=== PATIENT | female | born 1945 | race Caucasian/White ===

== ENCOUNTER 2017-12-19 14:18 | Day surgery (SDC) | payer MEDICARE ==
[~2017-12-19] VITALS: Ht 167.6 cm; Wt 102.1 kg
[~2017-12-19 14:18] MED LIST: DEXL60CA3 PO; ENOX100D2; FURO40TA4 PO; NITR4.1S2 TL; POTA20TA10 PO; SYN0.088T PO; WARF-55 PO
[2017-12-19] MEDS ORDERED: PANT40TA4 PO (14:52)
[2017-12-19] MEDS ORDERED: ENOX80SY7 SUBCUT (14:52)
[2017-12-19] MEDS ORDERED: COU7.5T PO (14:52)
[2017-12-19] MEDS ORDERED: METO50TA17 PO (14:52)
[2017-12-19] MEDS ORDERED: LORazepam 0.5 MG tablet PO PRN (15:10)
[2017-12-19] MEDS ORDERED: diphenhydrAMINE 25mg capsule PO PRN (15:10)
[2017-12-19] MEDS ORDERED: normal saline 1000ml 1,000 ML IV SCH (15:10)
[2017-12-19] MEDS ORDERED: clindamycin 600mg/D5W 50ml 50 ML IV ONE ×2 (15:15→15:20)
[2017-12-19 15:25] LABS: PROTHROMBIN TIME 10.4 SECONDS (9.0-12.0)
== END 2017-12-19 15:30 | disposition home or self-care (01) ==
LOC: SSTAY O 14:18
PROVIDERS: ATTEND Internal Medicine Interventional Cardiology
DX: T82.847A Pain due to cardiac prosthetic devices, implants and grafts, initial encounter (principal); G89.18 Other acute postprocedural pain; E03.9 Hypothyroidism, unspecified; I48.0 Paroxysmal atrial fibrillation; I34.0 Nonrheumatic mitral (valve) insufficiency; I44.1 Atrioventricular block, second degree; I27.20 Pulmonary hypertension, unspecified; I10 Essential (primary) hypertension; F32.9 Major depressive disorder, single episode, unspecified; Z53.8 Procedure and treatment not carried out for other reasons; Z88.0 Allergy status to penicillin; Z88.6 Allergy status to analgesic agent; Z79.01 Long term (current) use of anticoagulants; Z88.1 Allergy status to other antibiotic agents; Z88.8 Allergy status to other drugs, medicaments and biological substances; Z90.710 Acquired absence of both cervix and uterus; Z98.890 Other specified postprocedural states; Z79.899 Other long term (current) drug therapy; Z95.0 Presence of cardiac pacemaker; Z91.048 Other nonmedicinal substance allergy status; Y83.8 Other surgical procedures as the cause of abnormal reaction of the patient, or of later complication, without mention of misadventure at the time of the procedure; Y92.89 Other specified places as the place of occurrence of the external cause
CPT/HCPCS: 36415; 85610; J7030; J3490

== ENCOUNTER 2021-12-20 12:32 | Day surgery (SDC) | payer MEDICARE ==
[2021-12-14 14:40] LABS: BASOPHILS # (AUTO) 0.1 X10'3 (0-0.2); EOSINOPHILS # (AUTO) 0.1 X10'3 (0-0.9); EOSINOPHILS % (AUTO) 2.5 % (0-6); HEMOGLOBIN 13.4 g/dl (12.0-16.0); LYMPHOCYTES # (AUTO) 1.4 X10'3 (1.1-4.8); MEAN PLATELET VOLUME 7.6 FL (7.4-10.4); MONOCYTES # (AUTO) 0.5 X10'3 (0-0.9)
[2021-12-14 14:42] LABS: BASOPHILS % (AUTO) 1.5 % (0-1); HEMATOCRIT 40.5 % (35.0-45.0); MEAN CORPUSCULAR VOLUME 87.6 FL (78-98); MONOCYTES % (AUTO) 8.7 % (2-12); NEUTROPHILS # (AUTO) 3.2 X10'3 (1.8-7.7); NEUTROPHILS % (AUTO) 60.3 % (42-75); PLATELET COUNT 282 X10'3 (140-440); RED BLOOD COUNT 4.62 X10'6 (4.20-5.60); RED CELL DISTRIBUTION WIDTH 14.4 % (11.5-14.5); WHITE BLOOD COUNT 5.2 X10'3 (4.5-11.0)
[2021-12-14 14:50] LABS: ALBUMIN 3.3 G/DL (3.4-5.0); ANION GAP 8 (8-16); BLOOD UREA NITROGEN 12 MG/DL (7-18); BUN/CREATININE RATIO 12.1 (6.6-38.0); CHLORIDE 105 MMOL/L (99-107); CREATININE 0.99 MG/DL (0.40-0.90); GLUCOSE 94 MG/DL (70-104); POTASSIUM 4.2 MMOL/L (3.5-5.1); SODIUM 139 MMOL/L (135-145); TOTAL CARBON DIOXIDE 25.9 MMOL/L (24-32); eGFR 54 ML/MIN
[2021-12-14 14:54] LABS: APTT 38 SECONDS (22-32)
[~2021-12-20] VITALS: Ht 161.3 cm; Wt 84.5 kg
[2021-12-20] VITALS (7 sets, daily range): BP systolic 116–137; BP diastolic 52–102
[~2021-12-20 12:32] MED LIST changes: +COU7.5T PO; -DEXL60CA3 PO; -ENOX100D2; +ENOX80SY7 SUBCUT; -FURO40TA4 PO; +METO50TA17 PO; -NITR4.1S2 TL; +PANT40TA54 PO; -POTA20TA10 PO; -WARF-55 PO
[2021-12-20] MEDS ORDERED: fentaNYL/PF 50MCG/1 ML 2ML syringe IV ONE (12:50)
[2021-12-20] MEDS ORDERED: MIDAZolam 1mg/ml 10ml vial IV ONE (12:50)
[2021-12-20] MEDS ORDERED: NITR0.4T48 SL (12:56)
[2021-12-20] MEDS ORDERED: CARB25TA3 PO (12:56)
[2021-12-20] MEDS ORDERED: WARF-55 PO (12:56)
[2021-12-20] MEDS ORDERED: DRON400T6 PO (12:56)
[2021-12-20] MEDS ORDERED: CARB1TAB36 PO (12:56)
== END 2021-12-20 14:55 | disposition home or self-care (01) ==
LOC: SSTAY O 12:32
PROVIDERS: ATTEND Internal Medicine Interventional Cardiology
DX: I48.0 Paroxysmal atrial fibrillation (principal); Z53.8 Procedure and treatment not carried out for other reasons; G20 Parkinson's disease; I50.9 Heart failure, unspecified; E03.9 Hypothyroidism, unspecified; I34.0 Nonrheumatic mitral (valve) insufficiency; Z95.0 Presence of cardiac pacemaker; Z86.718 Personal history of other venous thrombosis and embolism; Z79.01 Long term (current) use of anticoagulants; Z79.899 Other long term (current) drug therapy; Z85.820 Personal history of malignant melanoma of skin; Z88.5 Allergy status to narcotic agent; Z88.1 Allergy status to other antibiotic agents; Z91.09 Other allergy status, other than to drugs and biological substances
CPT/HCPCS: 36415; 80048; 85025; 85610; 85730; 93005; 94760; 94799

== ENCOUNTER 2022-01-12 14:13 | Emergency (ER) | payer MEDICARE ==
[~2022-01-12] VITALS: Ht 160 cm; Wt 86.4 kg
[~2022-01-12 14:13] MED LIST changes: +CARB1TAB36 PO; +CARB25TA3 PO; -COU7.5T PO; +DRON400T6 PO; -ENOX80SY7 SUBCUT; -METO50TA17 PO; +NITR0.4T48 SL; -PANT40TA54 PO; +WARF-55 PO
[2022-01-12 14:39] LABS: BASOPHILS % (AUTO) 0.6 % (0-1); EOSINOPHILS # (AUTO) 0.1 X10'3 (0-0.9); EOSINOPHILS % (AUTO) 2.3 % (0-6); HEMATOCRIT 42.6 % (35.0-45.0); HEMOGLOBIN 14.2 g/dl (12.0-16.0); LYMPHOCYTES # (AUTO) 1.3 X10'3 (1.1-4.8); LYMPHOCYTES % (AUTO) 26.5 % (21-51); MEAN CORPUSCULAR HEMOGLOBIN 29.5 PG (27.0-31.0); MEAN CORPUSCULAR HGB CONC 33.4 g/dL (33.0-36.5); MEAN CORPUSCULAR VOLUME 88.5 FL (78-98); MEAN PLATELET VOLUME 7.6 FL (7.4-10.4); MONOCYTES # (AUTO) 0.5 X10'3 (0-0.9); MONOCYTES % (AUTO) 9.8 % (2-12); NEUTROPHILS % (AUTO) 60.8 % (42-75); PLATELET COUNT 281 X10'3 (140-440); RED BLOOD COUNT 4.82 X10'6 (4.20-5.60); RED CELL DISTRIBUTION WIDTH 14.5 % (11.5-14.5); WHITE BLOOD COUNT 4.9 X10'3 (4.5-11.0)
[2022-01-12 14:55] LABS: ALANINE AMINOTRANSFERASE 10 U/L (12-78); ALBUMIN 3.4 G/DL (3.4-5.0); ALBUMIN/GLOBULIN RATIO 0.9 (1.1-1.5); ALKALINE PHOSPHATASE 68 IU/L (46-116); ANION GAP 9 (8-16); ASPARTATE AMINO TRANSFERASE 14 U/L (10-37); BILIRUBIN,TOTAL 0.8 MG/DL (0.1-1.0); BLOOD UREA NITROGEN 12 MG/DL (7-18); BUN/CREATININE RATIO 10.2 (6.6-38.0); CALCIUM 8.9 MG/DL (8.5-10.1); CHLORIDE 105 MMOL/L (99-107); CREATININE 1.18 MG/DL (0.40-0.90); GLUCOSE 96 MG/DL (70-104); POTASSIUM 4.3 MMOL/L (3.5-5.1); SODIUM 141 MMOL/L (135-145); TOTAL CARBON DIOXIDE 27.5 MMOL/L (24-32); TOTAL PROTEIN 7.3 G/DL (6.4-8.2); eGFR 44 ML/MIN
[2022-01-12 15:41] VITALS: BP 125/58
== END 2022-01-12 16:37 | disposition home or self-care (01) ==
LOC: ER 14:14
DX: I48.0 Paroxysmal atrial fibrillation (principal); R53.1 Weakness; R55 Syncope and collapse; R00.2 Palpitations; R42 Dizziness and giddiness; I10 Essential (primary) hypertension; E03.9 Hypothyroidism, unspecified; Z90.710 Acquired absence of both cervix and uterus; Z95.0 Presence of cardiac pacemaker; Z88.0 Allergy status to penicillin; Z88.1 Allergy status to other antibiotic agents; Z88.5 Allergy status to narcotic agent; Z88.8 Allergy status to other drugs, medicaments and biological substances; Z79.899 Other long term (current) drug therapy
CPT/HCPCS: 36415; 71045; 80053; 83880; 84484; 85025; 93005; 99285

== ENCOUNTER 2022-02-14 09:36 | Day surgery (SDC) | payer MEDICARE ==
[2022-02-09 16:15] LABS: BASOPHILS # (AUTO) 0.1 X10'3 (0-0.2); BASOPHILS % (AUTO) 1.7 % (0-1); EOSINOPHILS # (AUTO) 0.1 X10'3 (0-0.9); EOSINOPHILS % (AUTO) 2.5 % (0-6); HEMATOCRIT 41.2 % (35.0-45.0); HEMOGLOBIN 13.9 g/dl (12.0-16.0); LYMPHOCYTES # (AUTO) 1.4 X10'3 (1.1-4.8); LYMPHOCYTES % (AUTO) 28.8 % (21-51); MEAN CORPUSCULAR HEMOGLOBIN 29.3 PG (27.0-31.0); MEAN CORPUSCULAR HGB CONC 33.7 g/dL (33.0-36.5); MEAN CORPUSCULAR VOLUME 87.1 FL (78-98); MEAN PLATELET VOLUME 8.2 FL (7.4-10.4); MONOCYTES # (AUTO) 0.5 X10'3 (0-0.9); MONOCYTES % (AUTO) 9.5 % (2-12); NEUTROPHILS # (AUTO) 2.9 X10'3 (1.8-7.7); NEUTROPHILS % (AUTO) 57.5 % (42-75); PLATELET COUNT 266 X10'3 (140-440); RED BLOOD COUNT 4.73 X10'6 (4.20-5.60); RED CELL DISTRIBUTION WIDTH 14.5 % (11.5-14.5)
[2022-02-09 16:25] LABS: ALBUMIN 3.2 G/DL (3.4-5.0); ANION GAP 5 (8-16); BLOOD UREA NITROGEN 13 MG/DL (7-18); BUN/CREATININE RATIO 11.7 (6.6-38.0); CALCIUM 8.8 MG/DL (8.5-10.1); CHLORIDE 108 MMOL/L (99-107); CREATININE 1.11 MG/DL (0.40-0.90); GLUCOSE 80 MG/DL (70-104); POTASSIUM 4.1 MMOL/L (3.5-5.1); SODIUM 142 MMOL/L (135-145); TOTAL CARBON DIOXIDE 29.2 MMOL/L (24-32); eGFR 48 ML/MIN
[2022-02-09 16:28] LABS: APTT 39 SECONDS (22-32)
[2022-02-14] VITALS (9 sets, daily range): BP systolic 130–159; BP diastolic 60–74
[~2022-02-14] VITALS: Ht 160 cm; Wt 83.6 kg
[2022-02-14] MEDS ORDERED: MIDAZolam 1mg/ml 10ml vial IV ONE (10:20)
[2022-02-14] MEDS ORDERED: fentaNYL/PF 50MCG/1 ML 2ML syringe IV ONE (10:20)
[2022-02-14] MEDS ORDERED: normal saline 1000ml 1,000 ML IV SCH (10:20)
[2022-02-14] MEDS ORDERED: CARB25TA PO ×2 (10:33→10:45)
[2022-02-14] MEDS ORDERED: CARB1TAB36 PO ×2 (10:36→10:45)
[2022-02-14] MEDS ORDERED: WARF-55 PO (10:45)
== END 2022-02-14 15:45 | disposition home or self-care (01) ==
LOC: SSTAY O 09:36
PROVIDERS: ATTEND Internal Medicine Interventional Cardiology
DX: I48.0 Paroxysmal atrial fibrillation (principal); E03.9 Hypothyroidism, unspecified; I34.0 Nonrheumatic mitral (valve) insufficiency; I50.32 Chronic diastolic (congestive) heart failure; G20 Parkinson's disease; I95.89 Other hypotension; Z86.718 Personal history of other venous thrombosis and embolism; Z85.820 Personal history of malignant melanoma of skin; Z95.0 Presence of cardiac pacemaker; Z79.01 Long term (current) use of anticoagulants; Z79.899 Other long term (current) drug therapy; Z88.5 Allergy status to narcotic agent; Z88.0 Allergy status to penicillin; Z91.09 Other allergy status, other than to drugs and biological substances
CPT/HCPCS: 36415; 80048; 85025; 85610; 85730; 92960; 93005; 94799; J2250; J3010; J7030

== ENCOUNTER 2022-10-12 09:59 | Emergency (ER) | payer MEDICARE ==
[~2022-10-12] VITALS: Ht 167.6 cm; Wt 60.0 kg
[~2022-10-12 09:59] MED LIST changes: +CARB25TA PO; -DRON400T6 PO
[2022-10-12 13:00] VITALS: BP 152/68
== END 2022-10-12 13:50 | disposition home or self-care (01) ==
LOC: ER 09:59
DX: M25.512 Pain in left shoulder (principal); M54.2 Cervicalgia; I10 Essential (primary) hypertension; E03.9 Hypothyroidism, unspecified; Z90.710 Acquired absence of both cervix and uterus; Z95.1 Presence of aortocoronary bypass graft; Z88.0 Allergy status to penicillin; Z88.8 Allergy status to other drugs, medicaments and biological substances; Z88.1 Allergy status to other antibiotic agents; Z79.899 Other long term (current) drug therapy; W18.39XA Other fall on same level, initial encounter; Y93.89 Activity, other specified; Y92.89 Other specified places as the place of occurrence of the external cause; Y99.8 Other external cause status
CPT/HCPCS: 70450; 72125; 73030; 99284